=== PATIENT | male | born 1970 | race African-American/Black ===

== ENCOUNTER 2017-05-02 14:30 | Emergency (ER) | payer SELFPAY ==
--- NOTE | 2017-05-02 14:54 | Emergency Department Report ---
Chief Complaint: Skin Rash Stated Complaint: POSSIBLE BLOOD CLOT Time Seen by Provider: 05/02/17 14:49 - HPI History of Present Illness: pt states he has a spot on his LUE x 1 year. PT states for the last 2-3 months , the spots have spread. - ROS Review of Systems: + rash + bleeding around tooth - Exam Physical Exam: pt with rash to bue MSE screening note: Focused history and physical exam performed. Due to findings the following was ordered: labs ED Disposition for MSE Condition: Stable
--- NOTE | 2017-05-02 15:44 | XRay Report ---
LEFT ANKLE, 3 views: History: Left ankle pain. Bone mineralization is normal. No acute osseous abnormality or joint pathology is identified. The soft tissues are unremarkable. IMPRESSION: Unremarkable left ankle.
[2017-05-02 16:31] LABS: Basophils % (Auto) 1.2 % (0.0-1.8); Eosinophils % (Auto) 2.3 % (0.0-4.3); Hematocrit 42.9 % (35.5-45.6); Hemoglobin 14.4 gm/dl (11.8-15.2); Mean Corpuscular HGB Conc 33 % (32-34); Mean Corpuscular Hemoglobin 31 pg (28-32); Mean Corpuscular Volume 92 fl (84-94); Platelet Count 222 K/mm3 (140-440); Red Blood Count 4.65 M/mm3 (3.65-5.03); Red Cell Distribution Width 12.8 % (13.2-15.2); White Blood Count 7.4 K/mm3 (4.5-11.0)
[2017-05-02 16:55] LABS: Alanine Aminotransferase 15 units/L (7-56); Albumin 4.6 g/dL (3.9-5); Albumin/Globulin Ratio 1.4 %; Alkaline Phosphatase 68 units/L (35-129); Anion Gap 15 mmol/L; Blood Urea Nitrogen 18 mg/dL (9-20); Calcium 9.3 mg/dL (8.4-10.2); Carbon Dioxide 25 mmol/L (22-30); Chloride 102.4 mmol/L (98-107); Glucose 98 mg/dL (75-100); Potassium 4.5 mmol/L (3.6-5.0); Sodium 138 mmol/L (137-145)
--- NOTE | 2017-05-03 01:48 | Emergency Department Report ---
ED Rash HPI - HPI Chief Complaint: Skin/Abscess/Foreign Body Stated Complaint: POSSIBLE BLOOD CLOT Time Seen by Provider: 05/02/17 14:49 Duration: 1 year Rash Symptoms: No Itching, No Facial Swelling, No Tongue/Oral Swelling, No Breathing Difficulties, No Choking Sensation, No Wheezing/Dyspnea, No Peeling, No Blistering, No Fever, No Lightheaded, No Malaise, No Myalgias Severity: mild Other History: 47-year-old male presents with complaint of one year of slight discoloration to skin on upper extremities back and face. States that he has developed small brownish patches on skin. Patient states he has not had this worked up by her primary care doctor or proofer black and white. Patient states that he does not currently have insurance which is why he came to the ER. Patient is awake alert and oriented 3 not in acute distress. States that he also sprained his ankle approximately 13 months ago, left ankle and has been experiencing intermittent pain in that ankle since the event pt is ambulatory without assistance, denies any history of fracture. States that he has noticed the lesions on his skin have become more numerous in the last few months. ED Review of Systems ROS: Stated complaint: POSSIBLE BLOOD CLOT Other details as noted in HPI Constitutional: denies: chills, fever Eyes: denies: eye pain, eye discharge, vision change ENT: denies: ear pain, throat pain Respiratory: denies: cough, shortness of breath, wheezing Cardiovascular: denies: chest pain, palpitations Endocrine: no symptoms reported Gastrointestinal: denies: abdominal pain, nausea, diarrhea Genitourinary: denies: urgency, dysuria Musculoskeletal: as per HPI (1 year of intermittent left ankle pain, patient is ambulatory). denies: back pain, joint swelling, arthralgia Skin: as per HPI, lesions (small brownish greasy lesions on upper arms scalp back). denies: rash Neurological: denies: headache, weakness, paresthesias Psychiatric: denies: anxiety, depression Hematological/Lymphatic: denies: easy bleeding, easy bruising ED Past Medical Hx - Past Medical History Previous Medical History?: No - Surgical History Past Surgical History?: No - Social History Smoking Status: Former Smoker Substance Use Type: None - Medications Home Medications: Home Medications Medication Instructions Recorded Confirmed Last Taken Type Ibuprofen [Motrin] 600 mg PO Q8H PRN #15 tablet 03/29/16 Unknown Rx Ibuprofen [Motrin] 600 mg PO Q8H PRN #25 tablet 05/03/17 Unknown Rx Rash Exam - Exam General: Vital signs noted. No distress. Alert and acting appropriately. HEENT: No Periorbital Edema, No Conjuctival Injection, No Chemosis, No Perioral Edema, No Tongue Edema, No Uvular Edema, No Compromised Airway, No Drooling Lungs: Yes Good Air Exchange (Normal Breath Sounds), No Wheezes, No Ronchi, No Stridor, No Cough, No Labored Respirations, No Retractions, No Use of Accessory Muscles, No Other Abnormal Lung Sounds Heart: Yes Regular, No Murmur Skin: Yes Maculopapular Rash (greasy, brown small less than 1 cm patches of slightly elevated skin, appearance of seborrheic dermatosis on scalp forehead upper arms and upper back) Other: Positive: Abdomen Normal, Neurologic Normal, Musculoskeletal Normal ED Course Vital Signs 05/02/17 14:49 Temperature 98.8 F Pulse Rate 86 Respiratory 18 Rate Blood Pressure 143/83 O2 Sat by Pulse 99 Oximetry ED Medical Decision Making - Lab Data Result diagrams: 05/02/17 16:20 05/02/17 16:20 - Medical Decision Making A/P: Seborrheic keratosis, chronic left ankle pain 1-lesions on skin patient is complaining of are consistent with appearance of seborrheic keratosis. 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 Patient is ambulatory distal pulses and foot are intact distal sensation is intact, patient may have experienced ligamentous injury, x-ray shows no fracture and left ankle 2-referrals to outpatient primary care, dermatology and orthopedics 3-blood work within normal limits 4- although triage note says "possible blood clot" there are no clinical signs of upper or lower extremity DVT or based on patient's history and complaints. Patient states that he was initially concerned he was blood clots in the skin which is what he told triage. States he had no idea what they actually were. Critical care attestation.: If time is entered above; I have spent that time in minutes in the direct care of this critically ill patient, excluding procedure time. ED Disposition Clinical Impression: Seborrheic keratoses, Physically well but worried Ankle pain, chronic Qualifiers: Laterality: left Qualified Code(s): M25.572 - Pain in left ankle and joints of left foot; G89.29 - Other chronic pain Disposition: TO HOME OR SELFCARE Is pt being admited?: No Does the pt Need Aspirin: No Condition: Stable Instructions: Arthralgia (ED) Prescriptions: Ibuprofen [Motrin] 600 mg PO Q8H PRN #25 tablet PRN Reason: Pain Referrals: [facility] [Provider Group] - 3-5 Days [facility] [place] [Outside] - 3-5 Days [facility] [Outside] - 3-5 Days HERNANDEZ WILSON MD [Staff Physician] - 3-5 Days Forms: Work/School Release Form(ED) Time of Disposition: 01:52
[2017-05-03 01:59] VITALS: BP 161/91
== END 2017-05-03 02:07 | disposition home or self-care (01) ==
LOC: ED 14:30
DX: L82.1 Other seborrheic keratosis (principal); M25.572 Pain in left ankle and joints of left foot; G89.29 Other chronic pain; Z87.891 Personal history of nicotine dependence
CPT/HCPCS: 36415; 80053; 85025